=== PATIENT | male | born 1995 | race Caucasian/White ===

== ENCOUNTER 2020-03-19 17:51 | Emergency (ER) | payer MEDICAID, SELFPAY ==
[2020-03-19 18:01] VITALS: BP 133/97; BP 133/98; PULSE 108; RESP 18; TEMP 36.9; O2SAT 99; BMI 28.3
--- NOTE | 2020-03-19 18:26 | PC.NURSE ---
WAITING TO BE SEEN BY PROVIDER
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
[2020-03-19 19:17] VITALS: PULSE 90; RESP 18; O2SAT 100
--- NOTE | 2020-03-19 19:21 | PC.NURSE ---
Report given to Monserrat EJWELL at [facility]. no questions regarding monitoring. parameters of htn explained. pt is not hypertensive or tachycardic upon arrival at [facility].
== END 2020-03-19 20:55 | disposition skilled nursing facility (03) ==
PROVIDERS: Emergency Provider Emergency Medicine
DX: I10 Essential (primary) hypertension (principal); Z87.820 Personal history of traumatic brain injury; R00.0 Tachycardia, unspecified
CPT/HCPCS: 99283

== ENCOUNTER 2020-04-04 17:40 | Emergency (ER) | payer MEDICAID, SELFPAY ==
--- NOTE | ~2020-04-04 | CT_ITS ---
EXAMINATION: CT CERVICAL SPINE WITHOUT CONTRAST CLINICAL INFORMATION: Fell and hit head COMPARISON: None TECHNIQUE: Helical imaging of the cervical spine was performed without administration of IV contrast. Reformatted sagittal and coronal images were obtained. This CT examination was performed using dose optimization techniques as appropriate, variously including the following: *Automated exposure control *Adjustment of mA and/or kV according to patient size (this includes techniques or standardized protocols for targeted exams where dose is matched to indication/reason for exam; i.e. extremities or head) *Use of iterative reconstruction technique DLP: 602 mGy-cm FINDINGS: There is straightening of the normal lordosis of the cervical spine. The vertebral body heights and intervertebral disc spaces are maintained. The posterior elements are intact. There is a normal C1-C2 articulation. The paravertebral soft tissues are normal. The airway is patent. CT/CT cervical spine wo con IMPRESSION: No acute bony abnormality of the cervical spine.
--- NOTE | ~2020-04-04 | CT_ITS ---
EXAMINATION: CT HEAD WITHOUT CONTRAST CLINICAL INFORMATION: Status post fall, hit head COMPARISON: None TECHNIQUE: Contiguous axial imaging was performed from the skull base to vertex without intravenous administration of contrast. This CT examination was performed using dose optimization techniques as appropriate, variously including the following: *Automated exposure control *Adjustment of mA and/or kV according to patient size (this includes techniques or standardized protocols for targeted exams where dose is matched to indication/reason for exam; i.e. extremities or head) *Use of iterative reconstruction technique DLP: 709 mGy-cm FINDINGS: There are extensive postsurgical changes of the skull including bilateral frontal craniotomies, left parietal craniotomy, and left parieto-occipital craniotomy. There is a right frontal approach ventricular catheter with tip in the right lateral ventricle near the midline. There is a chronic appearing left subdural collection with peripheral calcifications and dural thickening. There is encephalomalacia in the bilateral frontal lobes and bilateral parietal lobes, likely related to prior intervention. There is no evidence of acute intracranial hemorrhage or territorial infarction. No abnormal mass effect or midline shift is seen. . There is diffuse ventriculomegaly which is suspected to be chronic. The mastoid air cells and visualized portions of the paranasal sinuses are well aerated. CT/CT head/brain wo con IMPRESSION: No acute intracranial pathology. Extensive postsurgical changes of the skull. Chronic appearing left subdural collection with internal calcifications and dural thickening. Diffuse ventriculomegaly, suspected to be chronic. Recommend comparison to any previous studies. Right frontal approach ventricular catheter with tip in the right lateral ventricle adjacent to the midline.
[2020-04-04 17:50] VITALS: BP 112/81; BP 136/89; PULSE 88; PULSE 92; RESP 16; TEMP 37.1; O2SAT 96; BMI 32.3
--- NOTE | 2020-04-04 18:15 | PC.NURSE ---
pt to ct scan
--- NOTE | 2020-04-04 18:26 | ED.FALL ---
HPI - Fall General Chief Complaint: Fall Stated Complaint: FALL,PAIN TO BACK OF HEAD Time Seen by Provider: 04/04/20 18:17 Source: EMS Mode of arrival: EMS History of Present Illness HPI Narrative: Patient presents to the ED for posterior head pain after falling. Patient is bedbound. Patient fell yesterday while at [facility] facility where he resides while trying to be transfered to a chair. Patient was sent to ED for evaluation due to patient having posterior head pain and having history of S[employer]IOR BR[employer]GER shunt Related Data Allergies Allergy/AdvReac Type Severity Reaction Status Date / Time mcrae butter extract Allergy Unknown Uncoded 04/04/20 17:56 Review of Systems Review of Systems: Yes all other systems are reviewed and are negative Constitutional: Constitutional: Reports as per HPI and Reports no additional constitutional complaints Eyes: Eyes: Reports as per HPI and Reports no additional eye complaints ENT: Reports system reviewed and no additional complaints, except as documented and Reports as per HPI Cardiovascular: Cardiovascular: Reports as per HPI and Reports no additional cardiovascular complaints Respiratory: Respiratory: Reports as per HPI and Reports no additional respiratory complaints Gastrointestinal: Gastrointestinal: Reports as per HPI and Reports no additional gastrointestinal complaints Musculoskeletal: Musculoskeletal: Reports no additional musculoskeletal complaints and Reports as per HPI Neurologic: Reports system reviewed and no additional complaints, except as documented and Reports as per HPI Psychiatric: Psychiatric: Reports no additional psychiatric complaints and Reports as per HPI [facility] Past Medical History Medical History Asthma Hemiplegia HTN (hypertension) Hyperlipidemia Intracranial injury Presence of cerebrospinal fluid drainage device Social History Social History Alcohol intake: never Smoking Status: Current every day smoker Use of substances other than those prescribed or required for medical reasons: No Advance Directives: No Advance Directives Information Provided: Yes Physical Exam Vital Signs: Vital Signs: Last Vital Signs Temp 98.0 F 04/04/20 19:39 Pulse 85 04/04/20 19:39 Resp 18 04/04/20 19:39 BP 124/79 04/04/20 19:39 Pulse Ox 99 04/04/20 19:39 Body Mass Index 32.3 Const: General: cooperative, healthy appearing, comfortable, no acute distress, well developed, alert, awake and Physically active Orientation/consciousness: patient oriented x3 HENMT: Head: Yes normal to inspection, Yes No palpable skull fracture present, Yes normocephalic, Yes atraumatic, No abrasion, No Gage's sign, No contusion, No cranial bruits, No hematoma, No laceration, No occipital foramen tenderness, No palpable skull fracture, No raccoon eyes, No scalp lesion, No scalp tenderness, No Temporal artery tenderness present and No periorbital ecchymosis Eyes: General: appearance normal, both eyes and all related structures Neck: Neck: Yes normal visual inspection, Yes full ROM, Yes no lymphadenopathy, Yes no meningeal signs, Yes trachea midline, Yes supple and No tender Chest: Chest palpation & inspection: normal inspection of the chest and normal palpation of entire chest wall Resp: Effort & Inspection: normal respiratory effort and able to speak in complete sentences Auscultation: clear to auscultation bilaterally Cardio: Jugular venous distension: no JVD Heart sounds: S1 normal heart sound present and S2 normal heart sound present GI: Inspection: Yes normal to inspection and No abdominal wall ecchymosis Palpation (GI): Soft to palpation, not firm, nontender, no guarding and not rigid : General: No CVA tenderness and Yes no CVA tenderness Back/Spine/Pelvis: Back: no CVA tenderness, No CVA tenderness and No back tenderness Skin: General skin exam: no rashes or lesions noted and elasticity normal Neuro: General: patient oriented x3, no meningeal signs and CN's II-XI intact bilaterally Cranial nerves: Yes CN's II-XII intact bilaterally Extrem: Other: patient has chronic right sided hemiparesis with chronic right upper extremity contracted Psych: Appearance: grossly normal, well kempt and not disheveled Course Course Course Narrative: Patient is not in any distress. Due to falling with a [employer] shunt patient be sent for head CT and C-spine to rule out any brain bleed or neck fracture. Reevaluation(s) Reevaluation #1: Patient images came back negative for any acute inctranial pathology or cervical fracture. patient eating food normally in the ED is at baseline mentally. Time: 19:42 MDM - Fall MDM Narrative Medical decision making narrative: Fall. head injury Discharge Plan Discharge Clinical Impression: Fall Patient Disposition: Home, Self-Care Instructions: Head Injury (ED) Additional Instructions: Return to the ED for change in mental status, dizziness, headache, nausea, vomitting, or any other concerning symptoms. Referrals: Snow,Samuel, DO [Primary Care Provider] - 2 days (Fall. Head CT and Cervical spine negative for any brain bleed or neck fracture. ) Interventions: ED Discharge Assessment Last Done: 04/04/20 20:44 Discharge Date/Time: 04/04/20 20:45 Print Language: Citizen Of [place]
--- NOTE | 2020-04-04 18:27 | PC.NURSE ---
pt return from ct scan
[2020-04-04 19:39] VITALS: BP 124/79; PULSE 85; RESP 18; TEMP 36.7; O2SAT 99
--- NOTE | 2020-04-04 19:41 | PC.NURSE ---
patient alert to baseline, no c/o pain or discomfort, pt ct scan resulted- negative, vss, report called to alma at [facility], pt awaiting ambulance for transportation back to facility
--- NOTE | 2020-04-04 19:43 | PC.NURSE ---
pt given chicken salad sandwich with ok of provider
== END 2020-04-04 20:45 | disposition home or self-care (01) ==
PROVIDERS: Emergency Provider Internal Medicine; PCP Hospitalist
DX: S09.90XA Unspecified injury of head, initial encounter (principal); M54.2 Cervicalgia; R51.9 Headache, unspecified; I10 Essential (primary) hypertension; W06.XXXA Fall from bed, initial encounter; Y93.9 Activity, unspecified; Y92.9 Unspecified place or not applicable; Y99.9 Unspecified external cause status; Z71.6 Tobacco abuse counseling; F17.200 Nicotine dependence, unspecified, uncomplicated; Z79.899 Other long term (current) drug therapy
CPT/HCPCS: 70450; 72125; 99284

== ENCOUNTER 2020-08-30 12:45 | Outpatient (REF) | payer OTHER, SELFPAY ==
--- NOTE | ~2020-08-30 | CT_ITS ---
EXAMINATION: CT HEAD WITHOUT CONTRAST CLINICAL INFORMATION: Chronic headaches. COMPARISON: CT brain 03/27/2020. TECHNIQUE: Contiguous axial imaging was performed from the skull base to vertex without intravenous administration of contrast. This CT examination was performed using dose optimization techniques as appropriate, variously including the following: *Automated exposure control *Adjustment of mA and/or kV according to patient size (this includes techniques or standardized protocols for targeted exams where dose is matched to indication/reason for exam; i.e. extremities or head) *Use of iterative reconstruction technique DLP: 732 mGy-cm FINDINGS: There is no evidence of acute intracranial hemorrhage or territorial infarction. Chronic left frontal extracranial tiny subdural collection with adjacent calcification is stable. There is old bilateral frontal lobe hypodensity consistent with encephalomalacia. Mild bilateral watershed area parietal encephalomalacia is noted. A right ventriculoperitoneal shunt is noted with its tip in the right frontal horn lateral ventricle. Both lateral ventricles are enlarged as is the third and fourth ventricle similar to previous study. No acute infarct, edema or or abnormal mass effect or midline shift is seen. Ham to white matter differentiation is well preserved. No extra-axial fluid collections are identified. There are bilateral frontal and left parietotemporal craniotomies, stable. The mastoid air cells and visualized portions of the paranasal sinuses are well aerated. CT/CT head/brain wo con IMPRESSION: No acute process. Stable bilateral frontal and left parietotemporal craniotomies, right [employer] MANAGER shunt and dilated ventricles. Encephalomalacia in bilateral frontal and parietal lobes are stable as well. No acute bleed. Old left subdural collection with adjacent dural calcification is stable.
== END 2020-08-30 12:46 | disposition home or self-care (01) ==
LOC: HO.CT 12:45
PROVIDERS: PCP Hospitalist; Visit Provider Psychiatry & Neurology Neurology
DX: R51.9 Headache, unspecified (principal)
CPT/HCPCS: 70450

== ENCOUNTER → 2020-09-30 14:40 | Outpatient (BNVA) | payer MEDICAID, SELFPAY | PROVIDERS: PCP Hospitalist; Visit Provider Urology | DX: R33.9 Retention of urine, unspecified (principal); N40.1 Benign prostatic hyperplasia with lower urinary tract symptoms; R35.1 Nocturia; T50.995A Adverse effect of other drugs, medicaments and biological substances, initial encounter | CPT/HCPCS: 99202 ==